=== PATIENT | female | born 1985 | race Two or more races ===

== ENCOUNTER 2016-08-06 17:42 | Emergency (ER) | payer MEDICAID ==
[2016-08-06] MEDS ORDERED: PROPARACAINE HCL 0.5% 300 GTTS/BOT SOLN.DROP ONE (17:54)
== END 2016-08-06 18:31 | disposition home or self-care (01) ==
LOC: ED 17:42
DX: H10.9 Unspecified conjunctivitis (principal)
CPT/HCPCS: 99283; 99282; A9270